=== PATIENT | male | born 1970 | race Caucasian/White ===

== ENCOUNTER 2018-12-01 21:31 | Emergency (ER) | payer SELFPAY ==
[~2018-12-01] VITALS: Ht 167.6 cm; Wt 82.6 kg
[2018-12-01 21:44] VITALS: BP 116/77
--- NOTE | 2018-12-01 21:45 | NUR ---
PT RETURNED TO LOBBY IN STABLE CONDITION
--- NOTE | 2018-12-01 22:25 | NUR ---
ACCOMPANIED BY FATHER WITH VSS.
--- NOTE | 2018-12-01 22:25 | NUR ---
PT PRESENTS TO ED WITH N/V/D AND GENERALIZED BODY ACHES. VSS. AFEBRILE. A&OX4. POSITIONED IN BED FOR COMFORT. ER MD AWARE. CONTINUE TO MONITOR.
--- NOTE | 2018-12-02 00:15 | NUR ---
ER AT BEDSIDE
[2018-12-02 00:47] VITALS: BP 110/62
--- NOTE | 2018-12-02 00:48 | NUR ---
Patient discharged with v/s stable. Written and verbal after care instructions given and explained. Patient alert, oriented and verbalized understanding of instructions. Ambulatory with steady gait. All questions addressed prior to discharge. ID band removed. Patient advised to follow up with PMD. Rx of IBU,ZOFRAN,IMODIUM given. Patient educated on indication of medication including possible reaction and side effects. Opportunity to ask questions provided and answered.
== END 2018-12-02 00:48 | disposition home or self-care (01) ==
LOC: MED 21:31
DX: R10.13 Epigastric pain (principal); R11.2 Nausea with vomiting, unspecified; R19.7 Diarrhea, unspecified
CPT/HCPCS: 99283